=== PATIENT | female | born 2000 | race African-American/Black ===

== ENCOUNTER 2025-10-24 20:00 | Emergency (ER) | payer MEDICAID ==
[~2025-10-24] VITALS: Ht 157.5 cm; Wt 98.0 kg
[2025-10-24 20:07] VITALS: O2SAT 99
[2025-10-24] MEDS: MORPHINE SULFATE 4 MG/ML INJ (FOR IV/IM USE) IV ONE (20:29)
[2025-10-24] MEDS: ACETAMINOPHEN 325MG TABLET PO ONE (20:29)
[2025-10-24 20:52] LABS: BASOPHILS % 0.1 % (0.0-2.0); EOSINOPHILS % 1.2 % (0.0-5.0); HEMATOCRIT. 37.2 % (36.0-48.0); HEMOGLOBIN. 12.6 g/dL (12.0-16.0); LYMPHOCYTES % 37.4 % (20.0-50.0); MEAN PLATELET VOLUME 7.9 fl (7.4-10.4); MONOCYTES % 6.5 % (2.0-8.0); NEUTROPHILS % 54.8 % (40.0-76.0); PLATELET 236 x1000/uL (130-400); RED BLOOD CELL COUNT 4.26 mill/uL (4.2-5.4); RED CELL DISTRIBUTION WIDTH 13.3 % (11.6-14.6)
[2025-10-24 21:00] LABS: CREATININE 0.7 mg/dL (0.6-1.0); UREA NITROGEN BLOOD 7 mg/dL (9-23)
[2025-10-24 21:45] VITALS: BP 105/53; PULSE 79; RESP 25; TEMP 36.9; O2SAT 98
== END 2025-10-24 21:54 | disposition home or self-care (01) ==
LOC: ER 20:00 → CMPBEDREQ 22:49
DX: M24.411 Recurrent dislocation, right shoulder (principal)
CPT/HCPCS: 80048; 85025; 36415; 73030; 96374; 99284; J2270; Z7610; A4565